=== PATIENT | male | born 1960 | race Two or more races ===

== ENCOUNTER 2024-03-01 20:29 | Emergency (ER) | payer OTHER ==
[~2024-03-01] VITALS: Ht 157.5 cm; Wt 60.4 kg
[2024-03-01 20:40] VITALS: BP 151/80; PULSE 64; RESP 18; TEMP 97.4; O2SAT 97
[2024-03-01] MEDS ORDERED: IBUP-1454 PO (21:57)
[2024-03-01] MEDS: TETANUS-DIPTH-ACEL PERTUSSIS 0.5ML SYR Tdap IM ONE (23:12)
[2024-03-02] MEDS ORDERED: CEPH500C PO (00:02)
== END 2024-03-02 00:17 | disposition home or self-care (01) ==
LOC: ER 20:29
DX: S81.011A Laceration without foreign body, right knee, initial encounter (principal); Z88.6 Allergy status to analgesic agent; W29.3XXA Contact with powered garden and outdoor hand tools and machinery, initial encounter; Y93.89 Activity, other specified; Y92.89 Other specified places as the place of occurrence of the external cause; Y99.8 Other external cause status
CPT/HCPCS: 12002; 73562; 90471; 90715

== ENCOUNTER 2024-03-11 16:58 | Emergency (ER) | payer OTHER ==
[~2024-03-11] VITALS: Ht 160 cm; Wt 61.5 kg
[~2024-03-11 16:58] MED LIST: CEPH500C PO; IBUP-1454 PO
[2024-03-11 17:18] VITALS: BP 115/61; PULSE 62; RESP 16; TEMP 98.8; O2SAT 95
== END 2024-03-11 21:05 | disposition home or self-care (01) ==
LOC: ER 16:58
DX: S81.011D Laceration without foreign body, right knee, subsequent encounter (principal); Z79.1 Long term (current) use of non-steroidal anti-inflammatories (NSAID); X58.XXXD Exposure to other specified factors, subsequent encounter